=== PATIENT | male | born 1940 | race Caucasian/White ===

== ENCOUNTER 2017-04-08 10:17 | Inpatient (IN) | payer MEDICARE ==
[~2017-04-08] VITALS: Ht 185.4 cm; Wt 68.6 kg
[~2017-04-08 10:17] MED LIST: ACET325T14 PO; ASPI1TAB2 PO; MELA1TAB22 PO; OMEP20TA62 PO
[2017-04-08] MEDS ORDERED: ASPIRIN 81 MG TABLET CHEW ONE (10:58)
[2017-04-08] MEDS ORDERED: NITROGLYCERIN SINGLE TAB 0.4 MG SL ONE (10:58)
[2017-04-08] MEDS ORDERED: SODIUM CHLORIDE FLUSH 10ML SYR IVF ONE (11:00)
[2017-04-08] MEDS ORDERED: ASPIRIN 81 MG TABLET CHEW PO ONE (11:00)
[2017-04-08] MEDS ORDERED: ONDANSETRON 2MG/ML, 2ML IVPush ONE (11:00)
[2017-04-08] MEDS ORDERED: NITROGLYCERIN SINGLE TAB 0.4 MG SL PRN (11:00)
[2017-04-08] MEDS ORDERED: ONDANSETRON 2MG/ML, 2ML ONE (11:00)
[2017-04-08 11:27] LABS: BLOOD UREA NITROGEN 13 mg/dL (7-18)
[2017-04-08 11:33] LABS: ASPARTATE AMINO TRANSFERASE 8 U/L (15-37)
[2017-04-08] MEDS ORDERED: SODIUM CHLORIDE FLUSH 10ML SYR IVF PRN (13:00)
[2017-04-08] MEDS ORDERED: hydrALAzine 20 MG/ML, 1ML IVPush PRN (14:00)
[2017-04-08] MEDS ORDERED: morphine SULFATE 10 MG/ML, 1ML IVPush PRN (14:00)
[2017-04-08] MEDS ORDERED: DILTIAZEM 5 MG/ML, 5ML IVPush PRN (14:00)
[2017-04-08] MEDS ORDERED: ACETAMINOPHEN 325 MG TABLET PO PRN (14:00)
[2017-04-08] MEDS ORDERED: ONDANSETRON 2MG/ML, 2ML IVPush PRN (14:00)
[2017-04-08] MEDS ORDERED: DOCUSATE 100 MG CAPSULE PO PRN (14:00)
[2017-04-08] MEDS ORDERED: HYDROcodone/APAP 5/325 TABLET PO PRN (14:00)
[2017-04-08 14:10] VITALS: BP 159/72
[2017-04-08] MEDS: ENOXAPARIN 80 MG/0.8 ML SQ SCH (15:45)
[2017-04-08] MEDS: LORazepam 2 MG/ML, 1ML IVPush PRN ×2 (16:43→21:52)
[2017-04-08 17:18] LABS: IS PT STATUS REG ER OR PRE ER? NO
[2017-04-08 18:50] VITALS: BP 136/79
[2017-04-09 00:43] LABS: IS PT STATUS REG ER OR PRE ER? NO
[2017-04-09 01:30] VITALS: BP 129/77
[2017-04-09] MEDS: ENOXAPARIN 80 MG/0.8 ML SQ SCH ×2 (03:55→15:49)
[2017-04-09 05:51] LABS: IS PT STATUS REG ER OR PRE ER? NO
[2017-04-09 07:05] VITALS: BP 126/77
[2017-04-09] MEDS: OMEPRAZOLE 20 MG CAPSULE.DR PO SCH (08:10)
[2017-04-09 11:14] LABS: IS PT STATUS REG ER OR PRE ER? NO
[2017-04-09 15:55] VITALS: BP 155/88
[2017-04-09] MEDS: ENOXAPARIN 60 MG/0.6 ML SQ SCH (17:15)
[2017-04-09 17:51] LABS: IS PT STATUS REG ER OR PRE ER? NO
[2017-04-09 18:51] VITALS: BP 133/81
[2017-04-09 23:37] LABS: IS PT STATUS REG ER OR PRE ER? NO
[2017-04-10 01:44] VITALS: BP 116/71
[2017-04-10] MEDS: LORazepam 2 MG/ML, 1ML IVPush PRN (01:53)
[2017-04-10] MEDS: ENOXAPARIN 60 MG/0.6 ML SQ SCH (04:53)
[2017-04-10 07:50] VITALS: BP 126/81
[2017-04-10] MEDS ORDERED: REGADENOSON 0.4 MG/5 ML SYRINGE ONE (09:00)
[2017-04-10] MEDS: OMEPRAZOLE 20 MG CAPSULE.DR PO SCH (11:32)
[2017-04-10] MEDS ORDERED: APIX5TAB PO (12:56)
[2017-04-10] MEDS ORDERED: METO25TA91 PO (12:56)
[2017-04-10 14:47] VITALS: BP 128/82
[2017-04-10] MEDS ORDERED: APIXABAN 5 MG TABLET PO SCH (16:00)
[2017-04-10] MEDS ORDERED: LORA1TAB PO (16:05)
[2017-04-11] MEDS ORDERED: METOPROLOL SUCCINATE 25 MG TAB.ER.24H PO SCH ×2 (06:00)
== END 2017-04-10 18:23 | disposition home or self-care (01) | DRG 309 ==
LOC: ED 11:51 → EDIP 12:46 → 5SO 14:10
PROVIDERS: ADMIT Internal Medicine; ATTEND Internal Medicine
DX: I48.91 Unspecified atrial fibrillation (principal); D68.69 Other thrombophilia; I24.9 Acute ischemic heart disease, unspecified; I10 Essential (primary) hypertension; R07.9 Chest pain, unspecified; G47.9 Sleep disorder, unspecified; W01.0XXA Fall on same level from slipping, tripping and stumbling without subsequent striking against object, initial encounter; J30.2 Other seasonal allergic rhinitis; G57.93 Unspecified mononeuropathy of bilateral lower limbs; Z96.659 Presence of unspecified artificial knee joint; F12.10 Cannabis abuse, uncomplicated; Y93.89 Activity, other specified; Y92.89 Other specified places as the place of occurrence of the external cause; Y99.8 Other external cause status; Z82.49 Family history of ischemic heart disease and other diseases of the circulatory system; Z79.01 Long term (current) use of anticoagulants; Z79.82 Long term (current) use of aspirin; Z86.19 Personal history of other infectious and parasitic diseases; Z91.81 History of falling; Z80.9 Family history of malignant neoplasm, unspecified
CPT/HCPCS: 36415; 71010; 78452; 80053; 80061; 83036; 83735; 83880; 84100; 84443; 84484; 85025; 85610; 85730; 93005; 93017; 93306; 93880; 96374; J1650; J2405; J2785; A9502; C9898; J2060

== ENCOUNTER → 2019-02-27 | Outpatient (CLI) | payer MEDICARE ==
[~2019-02-27] MED LIST changes: +APIX5TAB PO; +ASPI-691 PO; -ASPI1TAB2 PO; +DIGO125T PO; +FLEC50TA25 PO; +LORA1TAB PO; +METO25TA91 PO
== END | disposition home or self-care (01) ==
LOC: RAD 12:34
PROVIDERS: ATTEND Internal Medicine Gastroenterology
DX: K21.9 Gastro-esophageal reflux disease without esophagitis (principal); R10.13 Epigastric pain; R11.2 Nausea with vomiting, unspecified
CPT/HCPCS: 74220